=== PATIENT | male | born 1970 | race Hispanic/Latino ===

== ENCOUNTER 2018-03-21 11:06 | Day surgery (SDC) | payer OTHER ==
[~2018-03-21 11:06] MED LIST: ANCEF/STERILE WATER 2 GM/20 ML IV NR
--- NOTE | 2018-03-21 12:21 | XRay Report ---
AP ABDOMEN: HISTORY: Right renal stone. The renal shadows are normal size, position and contour. A few small calyceal stones are identified near the mid poles of both kidneys. The largest stone measures 6 mm in the mid left kidney. No calcifications are identified overlying the expected course of ureters. The bowel gas pattern is normal. IMPRESSION: Bilateral nephrolithiasis.
[2018-03-21] MEDS ORDERED: DILAUDID IV PRN (12:58)
[2018-03-21] MEDS ORDERED: ZOFRAN IV PRN (12:58)
--- NOTE | 2018-03-21 12:58 | Anesthesia Day of Surgery ---
Anesthesia Day of Surgery - Day of Surgery Patient Examined: Yes Patient H&P Reviewed: Yes Patient is NPO: Yes
--- NOTE | 2018-03-21 12:58 | Anesthesia Consultation ---
Anesthesia Consult and Med Hx Date of service: 03/21/18 - Airway Anesthetic Teeth Evaluation: Good ROM Head & Neck: Adequate Mental/Hyoid Distance: Adequate Mallampati Class: Class I Intubation Access Assessment: Good - Pulmonary Exam CTA: Yes - Cardiac Exam Cardiac Exam: RRR - Pre-Operative Health Status ASA Pre-Surgery Classification: ASA2 Proposed Anesthetic Plan: General - Pulmonary Hx Smoking: Yes (STOPPED X 10 YRS) Hx Sleep Apnea: No (CARLOS PRE SCREEN LOW RISK) - Cardiovascular System Hx Hypertension: No - Other Systems Hx Cancer: No
[2018-03-21] MEDS ORDERED: LACTATED RINGERS 1,000 ML IV SCH (13:00)
[2018-03-21] MEDS ORDERED: DIPRIVAN 10 MG/ML IV ONE (13:44)
[2018-03-21] MEDS ORDERED: SUBLIMAZE ONE (13:44)
[2018-03-21] MEDS ORDERED: ZOFRAN ONE (13:45)
[2018-03-21] MEDS ORDERED: XYLOCAINE MPF 2% ONE (13:45)
[2018-03-21] MEDS ORDERED: DECADRON ONE (13:45)
--- NOTE | 2018-03-21 14:44 | Short Stay Summary ---
Short Stay Documentation Date of service: 03/21/18 - History H&P: obtained from office - Allergies and Medications Current Medications: Allergies No Known Allergies Allergy (Verified 03/18/18 17:42) Home Medications Medication Instructions Recorded Confirmed Last Taken Type Ondansetron [Zofran TAB] 4 mg PO Q8HR PRN 03/18/18 03/18/18 03/19/18 History Promethazine [Phenergan TAB] 25 mg PO Q6HR PRN 03/18/18 03/18/18 03/19/18 History traMADol [Ultram] 50 mg PO Q4HR PRN 03/18/18 03/18/18 03/19/18 History Active Medications Cefazolin Sodium (Ancef/Sterile Water 2 Gm/20 Ml) 2 gm IV PREOP NR Stop: 03/21/18 22:00 Hydromorphone HCl (Dilaudid) 0.5 mg IV Q10MIN PRN PRN Reason: Pain , Severe (7-10) Stop: 03/21/18 23:59 Lactated Ringer's (Lactated Ringers) 1,000 mls @ 100 mls/hr IV DIRECT BEENA Ondansetron HCl (Zofran) 4 mg IV ONCE PRN PRN Reason: Nausea And Vomiting - Brief post op/procedure progress note Date of procedure: 03/21/18 Pre-op diagnosis: Right uret stone 5mm Post-op diagnosis: same Procedure: right uret eswl Anesthesia: GETA Findings: vis distal mod frag Surgeon: ADRY SAEZ Estimated blood loss: minimal Pathology: none Specimen disposition: to lab Condition: stable - Hospital course Hospital course: [facility]pac[facility] - Disposition Condition at discharge: Good Disposition: DC-01 TO HOME OR SELFCARE Short Stay Discharge Plan Activity: advance as tolerated Diet: advance as tolerated
[2018-03-21 16:01] VITALS: BP 117/74
--- NOTE | 2018-03-21 18:23 | Post Anesthesia Evaluation ---
- Post Anesthesia Evaluation Patient Participated: Yes Airway Patent: Yes Stable Respiratory Function: Yes Nausea/Vomiting: No Temp > 96.8F: Yes Pain Manageable: Yes Adequeate Hydration: Yes Anesthesia Complications: No
--- NOTE | 2018-03-25 10:16 | Operative Report ---
PREOPERATIVE DIAGNOSIS: Right ureteral 8 mm stone. POSTOPERATIVE DIAGNOSIS: Right ureteral 8 mm stone. PROCEDURE: Right ureteral ESWL. SURGEON: Antoni Reed MD ANESTHESIA: General. SPECIMENS: None. ESTIMATED BLOOD LOSS: Minimal. COMPLICATIONS: None. BLOOD ADMINISTRATION: None. CLINICAL INDICATIONS: The patient was counseled on RCBA, antibiotics, SCDs, and questions answered. DESCRIPTION OF PROCEDURE: The patient was transferred to the OR suite, in supine position, anesthesia. Biplanar fluoroscopy performed, correlated with the preoperative KUB, which appeared the stone had possibly migrated to the mid to distal ureter over the bony pelvis. While the patient is on the table, biplanar fluoroscopy was used to target the stone. With manipulation, we were able to identify the stone over to the bony pelvis and separate from the underlying bone. At this point, the lithotripter machine was repositioned in correct orientation for this location. We began our shockwaves. A total of 3000 shocks were delivered with most of the procedure between 7-9 kilovolts. Intermittent repositioning was done as necessary with fluoroscopy to target the stone with an F2. There was good visualization throughout the procedure. At the end of the procedure, there was mild decrease in density of the stone. The patient was awakened and transferred to the PACU in good and stable condition. PLAN: The patient will follow up as an outpatient for possible KUB and assess any passage of stones and may be staged if does not pass for ureteroscopy. JOB# [id number] ATS/NTS
== END 2018-03-21 16:15 | disposition home or self-care (01) ==
LOC: OR 11:06
PROVIDERS: ATTEND Urology
DX: N20.1 Calculus of ureter (principal); E78.00 Pure hypercholesterolemia, unspecified; K21.9 Gastro-esophageal reflux disease without esophagitis; Z79.899 Other long term (current) drug therapy; Z87.891 Personal history of nicotine dependence; Z98.890 Other specified postprocedural states
CPT/HCPCS: 50590; 74018; J0690; J1100; J2405; J2704; J3010